=== PATIENT | male | born 2000 | race Caucasian/White ===

== ENCOUNTER 2018-01-30 22:43 | Emergency (ER) | payer BC, MEDICAID ==
[~2018-01-30] VITALS: Ht 175.3 cm; Wt 106.8 kg
[~2018-01-30 22:43] MED LIST: CALC-1092 PO; OMEP20CA10 PO
[2018-01-30] MEDS ORDERED: diphenhydrAMINE 50 mg/ml inj IV ONE (23:10)
[2018-01-30] MEDS ORDERED: LORazepam 2 mg/ml vial IV ONE (23:10)
[2018-01-30] MEDS ORDERED: proCHLORperazine 10 MG/2 ml inj IV ONE (23:10)
[2018-01-30] MEDS ORDERED: iohexol 350MG/ML 100ml bottle IV ONE (23:19)
[2018-01-31] MEDS ORDERED: ketorolac trometh. 30mg/ml inj. IV ONE (00:35)
[2018-01-31 00:43] VITALS: BP 138/68
== END 2018-01-31 00:51 | disposition home or self-care (01) ==
LOC: ER 22:43
DX: G43.909 Migraine, unspecified, not intractable, without status migrainosus (principal)
CPT/HCPCS: 70496; 96374; 96375; 99284; J0780; J1200; J1885; J2060; Q9967

== ENCOUNTER 2023-10-31 12:40 | Emergency (ER) | payer BC, MEDICAID ==
[~2023-10-31] VITALS: Ht 175.3 cm; Wt 129.2 kg
[~2023-10-31 12:40] MED LIST changes: -OMEP20CA10 PO; +OMEP20CA15 PO
[2023-10-31 12:55] VITALS: TEMP 97.8
[2023-10-31 15:56] VITALS: BP 132/78; PULSE 68; RESP 18; O2SAT 97
== END 2023-10-31 15:58 | disposition home or self-care (01) ==
LOC: ER 12:41
DX: H53.2 Diplopia (principal); R11.2 Nausea with vomiting, unspecified; R19.7 Diarrhea, unspecified; Z79.899 Other long term (current) drug therapy
CPT/HCPCS: 70450; 99284